=== PATIENT | male | born 1960 | race Caucasian/White ===

== ENCOUNTER 2020-08-07 16:26 | Emergency (ER) | payer OTHER, BC, SELFPAY ==
[2020-08-07 16:55] VITALS: BP 117/68; PULSE 73; RESP 16; TEMP 36.9; O2SAT 96; BMI 31.2
--- NOTE | 2020-08-07 18:26 | ED.BACK ---
HPI - Back Pain/Injury General Chief Complaint: Back Pain/Injury Stated Complaint: work injury Time Seen by Provider: 08/07/20 18:26 Source: patient Mode of arrival: ambulatory Limitations: no limitations History of Present Illness HPI Narrative: Patient presents to the ED for back pain that is worse on movement. Patient states yesterday he was bending down to pickk up his [place] and all of sudden he felt left lower back pain radiating down to left leg with some tingling/numbness. Patient states past medical history of sciatica, disc herniation, and surgeries in his back. Patient denies any blunt trauma to the back. Patient denies any urinary/bowel incontinence. Patient denies paralysis of lower extremities. Patient denies dragging of lower extremities. Patient states back pain only on movement. Patient denies any abdominal pain, nausea, vomiting, flank pain, fever, chills, dysuria, hematuria, or testicular pain. Related Data Previous Rx's Medication Instructions Recorded cyclobenzaprine 10 mg PO TID PRN #18 tab 08/07/20 prednisone 40 mg PO DAILY #10 tab 08/07/20 Allergies Allergy/AdvReac Type Severity Reaction Status Date / Time No Known Allergies Allergy Verified 08/07/20 18:15 Review of Systems Review of Systems: Yes all other systems are reviewed and are negative Constitutional: Constitutional: Reports as per HPI and Reports no additional constitutional complaints Eyes: Eyes: Reports as per HPI and Reports no additional eye complaints ENT: Reports system reviewed and no additional complaints, except as documented and Reports as per HPI Cardiovascular: Cardiovascular: Reports as per HPI and Reports no additional cardiovascular complaints Respiratory: Respiratory: Reports as per HPI and Reports no additional respiratory complaints Gastrointestinal: Gastrointestinal: Reports as per HPI and Reports no additional gastrointestinal complaints Genitourinary: Genitourinary: Reports no additional male genitourinary complaints and Reports as per HPI Musculoskeletal: Musculoskeletal: Reports no additional musculoskeletal complaints, Reports as per HPI and Reports back pain Neurologic: Reports system reviewed and no additional complaints, except as documented and Reports as per HPI Psychiatric: Psychiatric: Reports no additional psychiatric complaints and Reports as per HPI [facility] Past Medical History Surgical History (Updated 08/07/20 @ 16:58 by Isma Muir) Previous back surgery Social History Social History Advance Directives: No Advance Directives Information Provided: Yes Physical Exam Vital Signs: Vital Signs: Last Vital Signs Temp 98.4 F 08/07/20 16:55 Pulse 73 08/07/20 16:55 Resp 16 08/07/20 16:55 BP 117/68 08/07/20 16:55 Pulse Ox 96 08/07/20 16:55 Body Mass Index 31.2 Const: General: cooperative, healthy appearing, comfortable, no acute distress, well developed, alert and awake Orientation/consciousness: patient oriented x3 HENMT: Head: Yes normal to inspection, Yes No palpable skull fracture present, Yes normocephalic and Yes atraumatic Eyes: General: appearance normal, both eyes and all related structures Neck: Neck: Yes normal visual inspection, Yes full ROM, Yes no lymphadenopathy, Yes no meningeal signs, Yes trachea midline, Yes supple and No tender Chest: Chest palpation & inspection: normal inspection of the chest and normal palpation of entire chest wall Resp: Effort & Inspection: normal respiratory effort and able to speak in complete sentences Auscultation: clear to auscultation bilaterally Cardio: Jugular venous distension: no JVD Heart sounds: S1 normal heart sound present and S2 normal heart sound present GI: Inspection: Yes normal to inspection and No abdominal wall ecchymosis Palpation (GI): Soft to palpation, not firm, nontender, no guarding and not rigid : General: No CVA tenderness and Yes no CVA tenderness Back/Spine/Pelvis: Other: Negative for any spine tenderness. Positive for left-sided muscular lumbar tenderness. Back: no CVA tenderness, No CVA tenderness and No back tenderness Skin: General skin exam: no rashes or lesions noted and elasticity normal Neuro: General: patient oriented x3, gait normal, no meningeal signs and CN's II-XI intact bilaterally Cranial nerves: Yes CN's II-XII intact bilaterally Extrem: General: Yes normal to inspection and Yes full ROM Psych: Appearance: grossly normal, well kempt and not disheveled Course Course Course Narrative: No need for x-ray. Patient does not have any spine tenderness. Patient already have tramadol and NSAIDs at home. Patient will be discharged with muscle relaxant steroids. Patient has normal gait Reevaluation(s) Reevaluation #1: Patient discharged with pain meds. Patient has follow-up with PCP this week for MRI. MDM - Back Pain/Injury MDM Narrative Medical decision making narrative: Sciatic up. Back strain Discharge Plan Discharge Clinical Impression: Strain of lumbar region, Sciatica Patient Disposition: Home, Self-Care Instructions: Sciatica (ED), Low Back Strain (ED) Additional Instructions: Return to the ED for any urinary/bowel incontinence, worsening back pain, paralysis of lower extremities, dysuria, hematuria, flank pain, fever, chills, nausea, vomiting, or abdominal pain Prescriptions: New prednisone 20 mg tablet 40 mg PO DAILY Qty: 10 RF: 0 cyclobenzaprine 10 mg tablet 10 mg PO TID PRN (Reason: pain) Qty: 18 RF: 0 Referrals: Miguel Hogue MD [Primary Care Provider] - 2 days (Sciatica/lumbar sprain.) Stand Alone Forms: Work/School Release Interventions: ED Discharge Assessment Last Done: 08/07/20 18:51 Discharge Date/Time: 08/07/20 18:52 Print Language: Gren[place]
== END 2020-08-07 18:52 | disposition home or self-care (01) ==
PROVIDERS: Emergency Provider Internal Medicine; PCP Internal Medicine
DX: S39.012A Strain of muscle, fascia and tendon of lower back, initial encounter (principal); X50.9XXA Other and unspecified overexertion or strenuous movements or postures, initial encounter; M54.42 Lumbago with sciatica, left side; Y93.89 Activity, other specified; Y92.019 Unspecified place in single-family (private) house as the place of occurrence of the external cause; Y99.9 Unspecified external cause status
CPT/HCPCS: 99283; 99284